=== PATIENT | male | born 1945 | race Caucasian/White ===

== ENCOUNTER → 2018-01-09 | Outpatient (CLI) | payer OTHER | LOC: HYPER 01-03 08:07 | DX: E11.622 Type 2 diabetes mellitus with other skin ulcer (principal); L97.821 Non-pressure chronic ulcer of other part of left lower leg limited to breakdown of skin; I87.2 Venous insufficiency (chronic) (peripheral); L30.9 Dermatitis, unspecified; Z86.718 Personal history of other venous thrombosis and embolism; Z86.711 Personal history of pulmonary embolism; Z87.01 Personal history of pneumonia (recurrent); Z79.01 Long term (current) use of anticoagulants; Z87.891 Personal history of nicotine dependence ==

== ENCOUNTER → 2018-01-23 | Outpatient (CLI) | payer OTHER | LOC: HYPER 07:03 | DX: E11.622 Type 2 diabetes mellitus with other skin ulcer (principal); L97.821 Non-pressure chronic ulcer of other part of left lower leg limited to breakdown of skin; I87.2 Venous insufficiency (chronic) (peripheral); E11.65 Type 2 diabetes mellitus with hyperglycemia; Z79.01 Long term (current) use of anticoagulants; Z87.891 Personal history of nicotine dependence; Z86.718 Personal history of other venous thrombosis and embolism; Z86.711 Personal history of pulmonary embolism ==